=== PATIENT | female | born 1995 | race Two or more races ===

== ENCOUNTER 2023-10-16 09:35 | Emergency (ER) | payer MEDICAID ==
[~2023-10-16] VITALS: Ht 152.4 cm; Wt 70.5 kg
[2023-10-16 10:05] VITALS: TEMP 97.7
[2023-10-16 10:30] LABS: COVID AG,FIA SOURCE NASAL SWAB
[2023-10-16 10:44] LABS: RAPID GROUP A STREP NEGATIVE (NEGATIVE)
[2023-10-16 10:50] LABS: SARS-COV2 (COVID) ANTIGEN,FIA Negative (Negative)
[2023-10-16 10:51] LABS: INFLUENZA TYPE A NEGATIVE FOR TYPE A (NEGATIVE); INFLUENZA TYPE B NEGATIVE FOR TYPE B (NEGATIVE)
[2023-10-16] MEDS ORDERED: AMOXICILLIN TRIHYDRATE 250 MG CAPSULE PO ONE (11:45)
[2023-10-16] MEDS ORDERED: AMOX500C2 PO (11:48)
[2023-10-16 13:24] VITALS: BP 114/72; PULSE 66; RESP 16
== END 2023-10-16 13:25 | disposition home or self-care (01) ==
LOC: EMS 09:38
DX: J32.9 Chronic sinusitis, unspecified (principal)
CPT/HCPCS: 87430; 87804; 99283

== ENCOUNTER 2024-02-03 10:42 | Emergency (ER) | payer SELFPAY ==
[~2024-02-03] VITALS: Ht 152.4 cm; Wt 75.0 kg
[~2024-02-03 10:42] MED LIST: ACET-3385 PO; AMOX500C2 PO; IBUP-1492 PO
[2024-02-03 10:54] VITALS: TEMP 98.3
[2024-02-03 11:54] LABS: BASOPHILS % (AUTO) 1.1 % (0.0-2.0); EOSINOPHILS % (AUTO) 2.3 % (1.0-6.0); HEMATOCRIT 40.5 % (36-46); HEMOGLOBIN 13.9 g/dL (12.0-16.0); LYMPHOCYTES # (AUTO) 2.2 K/uL (1.0-4.8); LYMPHOCYTES % (AUTO) 19.9 % (22.0-44.0); MEAN CORPUSCULAR HEMOGLOBIN 30.9 pg (26.0-34.0); MEAN CORPUSCULAR HGB CONC 34.3 G/dL (31.0-37.0); MEAN CORPUSCULAR VOLUME 90 fL (80-100); MONOCYTES # (AUTO) 0.8 K/uL (0.1-1.0); NEUTROPHILS # (AUTO) 7.6 K/uL (1.8-7.7); NEUTROPHILS % (AUTO) 69.7 % (40.0-70.0); PLATELET COUNT (AUTO) 300 K/uL (150-450); RED CELL DISTRIBUTION WIDTH 14.7 % (11.5-14.5); WHITE BLOOD COUNT (AUTO) 10.9 K/uL (4.5-11.0)
[2024-02-03] MEDS: ACETAMINOPHEN 500 MG TABLET PO ONE (11:54)
[2024-02-03 12:05] LABS: ANION GAP 10 mmol/L (8-16); CALCIUM, TOTAL 8.7 mg/dL (8.8-10.5); CARBON DIOXIDE 26 mmol/L (22-29); CHLORIDE 102 mmol/L (98-107); CREATININE 0.58 mg/dL (0.60-1.30); GLOMERULAR FILTR. RATE CALC > 60 mL/min (>60); GLUCOSE,RANDOM 84 mg/dL (70-110); POTASSIUM 3.7 mmol/L (3.5-5.1); SODIUM SERUM 138 mmol/L (136-145); UREA NITROGEN, BLOOD 6 mg/dL (7-18)
[2024-02-03 12:11] LABS: ALANINE AMINOTRANSFERASE 106 U/L (12-78); ALBUMIN 3.2 g/dL (3.4-5.0); ALKALINE PHOSPHATASE 109 U/L (46-116); ASPARTATE AMINOTRANSFERASE 52 U/L (15-37); BILIRUBIN,TOTAL 0.5 mg/dL (0.1-1.0); LIPASE 25 U/L (16-77); TOTAL PROTEIN, SERUM 7.4 g/dL (6.4-8.2)
[2024-02-03 12:13] LABS: APPEARANCE,URINE CLEAR (CLEAR); BILIRUBIN,URINE NEGATIVE (NEGATIVE); COLOR,URINE COLORLESS (YELLOW); GLUCOSE, URINE (UA) NEGATIVE (NEGATIVE); KETONES,URINE NEGATIVE (NEGATIVE); LEUKOCYTE ESTERASE ,URINE SMALL (NEGATIVE); NITRATE,URINE NEGATIVE (NEGATIVE); OCCULT BLOOD,URINE LARGE (NEGATIVE); PH,URINE 6.5 (5.0-8.0); PROTEIN,URINE NEGATIVE (NEGATIVE); SPECIFIC GRAVITIY, URINE 1.012 (1.003-1.030); UROBILINOGEN,URINE <=1.0 mg/dL (<=1.0)
[2024-02-03 12:25] LABS: BACTERIA,URINE None Seen /HPF (None Seen); SQUAMOUS EPITHELIAL CELL,UR Moderate /LPF (None Seen)
[2024-02-03 13:02] LABS: INFLUENZA A-RTPCR,COMBO NEGATIVE (NEGATIVE); INFLUENZA B-RTPCR,COMBO NEGATIVE (NEGATIVE); RESPIRATORY SYNCYTIAL VRS-PCR NEGATIVE (NEGATIVE); SARS COVID19 RTPCR, COMBO NEGATIVE (NEGATIVE)
[2024-02-03 13:24] VITALS: BP 118/77; PULSE 71; RESP 18
== END 2024-02-03 13:39 | disposition home or self-care (01) ==
LOC: EMS 10:42
DX: B34.9 Viral infection, unspecified (principal); Z20.822 Contact with and (suspected) exposure to COVID-19
CPT/HCPCS: 99284; 0241U; 71045; 80053; 81001; 83690; 84703; 85025; 87430; 36415

== ENCOUNTER 2024-07-07 12:20 | Emergency (ER) | payer SELFPAY ==
[~2024-07-07] VITALS: Ht 152.4 cm; Wt 72.7 kg
[2024-07-07 12:23] VITALS: BP 127/64; PULSE 70; RESP 18; TEMP 98.3; O2SAT 99
[2024-07-07 12:58] LABS: COVID AG,FIA SOURCE NASAL SWAB
[2024-07-07 14:11] LABS: SARS-COV2 (COVID) ANTIGEN,FIA Negative (Negative)
[2024-07-07 14:12] LABS: INFLUENZA TYPE A NEGATIVE FOR TYPE A (NEGATIVE); INFLUENZA TYPE B NEGATIVE FOR TYPE B (NEGATIVE)
== END 2024-07-07 14:58 | disposition home or self-care (01) ==
LOC: EMS 12:22
DX: J06.9 Acute upper respiratory infection, unspecified (principal); Z20.822 Contact with and (suspected) exposure to COVID-19
CPT/HCPCS: 87804; 99283